=== PATIENT | female | born 1960 | race Caucasian/White ===

== ENCOUNTER → 2016-08-17 | Outpatient (CLI) | payer MEDICARE, MEDICAID ==
[~2016-08-17] MED LIST: AUGMENTIN1 TA2 PO; BUPROPION HCL75 M1 PO; CLONAZEPAM0.5 M1 PO; CYCLOBENZAPRINE10 M1 OR; DUONEB 3 MG/3 ML3 ML IH; GABAPENTIN300 M1 PO; LOVASTATIN10 MG PO; MEDROL 4MG. DOSE4 MG PO; NORCO 325 MG-101 TAB PO; NORCO 325 MG-51 TAB PO; PRILOSEC20 M1 PO; PRILOSEC40 MG PO; SPIRIVA HA1 PUFF/INH IH; SYMBICORT1 AE1 IH; TAMIFLU75 MG PO; VENTOLIN H0.09 MG/AC IH; ZOFRAN ODT4 MG PO
[2016-08-17 10:44] LABS: BUN 12 mg/dL (7-18)
[2016-08-17 10:45] LABS: GFR (ESTIMATED) 74 ML/MIN (59-)
--- NOTE | 2016-08-21 08:56 | RADIOLOGY REPORT PS360 ---
DIG MAMM-SCREEN [facility] W/CAD CAD Screening COMPARISON: Digital mammograms 03/02/2013 and 03/22/2015 INDICATION: There is a history of breast cancer in the patient's mother. TECHNIQUE: Standard CC and MLO images were obtained. R2 CAD reviewed. FINDINGS: The breasts are composed primarily of fat with scattered fibroglandular densities throughout both breasts. Glandular elements are slightly more prominent left breast than right but this was noted previously. There are few scattered benign-appearing calcifications in each breast. There is a mole marker left breast. There is no new or suspicious lesion in either breast and there are no suspicious microcalcifications. IMPRESSION: Stable exam with no suspicious lesion seen recommend yearly follow-up BI-RADS CATEGORY: 2_Benign RECOMMENDED FOLLOWUP: 12M 12 MONTH FOLLOW-UP (A letter has been sent to the patient regarding results of the study.)
== END ==
LOC: RAD 08-07 09:00 → LAB 08:53 → RAD 08:53
PROVIDERS: Internal Medicine
DX: Z12.31 Encounter for screening mammogram for malignant neoplasm of breast (principal); I73.9 Peripheral vascular disease, unspecified; E87.6 Hypokalemia
CPT/HCPCS: G0202

== ENCOUNTER 2017-01-20 21:49 | Emergency (ER) | payer MEDICARE ==
[~2017-01-20] VITALS: Ht 170.2 cm; Wt 88.9 kg
--- NOTE | 2017-01-20 22:20 | Emergency Room Report ---
History of Present Illness Time Seen by [id number] Presenting Problem in Triage Pt arrived:Walked Presenting Problem:FEVER, BODY ACHES X 5 DAYS. 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 Y Clinical Suspician of Infection? N Mental Status: 1 - Regular (Normal Baseline) Sepsis Risk:Possible Sepsis Risk Have you (or family members/close friends) recently traveled outside the [place]? N If Yes, where/when: Have you had exposure to infectious disease within the past month? TB? Other? Specify: Source patient, RN notes reviewed, family, old records Exam Limitations no limitations Comment wf who over the last 5 days has had fever with prod cough with achey with no hemoptysis or rash Cardiac Chest Pain Chest pain indicative of cardiac No Timing/Duration this evening Severity moderate ALLERGIES Coded Allergies: tetanus and diphtheria toxoids (TETANUS & DIPHTHERIA TOXOIDS) (Severe, I-HIVES 02/28/16) Home Medications Reported Medications Albuterol/Ipratropiu (Duoneb) 3 ML IH TID Tiotropium [place] (Spiriva) 1 PUFF IH DAILY ALBUTEROL (Ventolin Hfa) 2 PUFFS IH Q6HP PRN BREATHING Clonazepam (Clonazepam 0.5MG) 1 MG PO TID #60 BUDESONIDE/FORMOTEROL FUMARATE (Symbicort 160-4.5 Mcg Inhaler) 2 PUFF IH BID Omeprazole (Prilosec 40mg Cap) 40 MG PO DAILY History Medical History General CAD? No Angina: No NV: No Hypertension? Yes Hyperlipidemia? Yes CHF? No COPD? Yes Asthma? No Anemia? No Hernia? No Thyroid Problems? No Hypothyroidism? No CVA? No Seizures? No Diabetes? No End Stage Renal Disease? No UTI? No Stones? No GB Disease: No Nephritic Syndrome? No Asplenia? No Hepatitis? No Sickle Cell Disease? No Arthritis? Yes Cataracts? No Glaucoma? No MRSA? No TB? No Cancer? Yes Site: SKIN-CHEST More? No Immunization Hx DT/Tetanus Unknown Flu 2016-17FSN Pneumonia Received In Past Surgical Hx Previous Surgery?Y C SECTION TUBAL REVERSAL VEIN REMOVAL SKIN CA LESION ON CHEST DATA MIGRATION LEAD Hx LMP N/A Family History Family Hx Diabetes Yes CAD Yes Hypertension Yes Hyperlipidemia Yes Cancer Yes TB No Social History Smoking Hx Smoker: Current Every Day Smoker Tobacco: Yes Type Cigarettes Packs/day 1 1/2 - 2 Packs Alcohol Alcohol: No Drugs none Review of Systems All Other Systems Reviewed and Negative Constitutional see HPI, fever Eyes denies drainage ENT denies: ear pain, epistaxis, throat pain. Respiratory see HPI, cough, denies shortness of breath, wheezing Cardiovascular denies chest pain, denies palpitations, denies syncope Gastrointestinal denies abdominal pain, denies diarrhea, denies vomiting Genitourinary denies: dysuria, frequency, hesitancy, hematuria. Musculoskeletal denies back pain, denies joint pain, denies joint swelling, denies neck pain Skin denies rash Psychiatric/Neurological denies headache, denies seizure Physical Exam Vital Signs Vital Signs Date Time Temp Pulse Resp B/P Pulse O2 O2 Flow FiO2 Ox Delivery Rate 01/21 0034 14 01/20 2354 98.6 88 16 138/43 92 01/20 2305 100.1 86 16 134/64 94 01/20 2200 100.1 93 22 140/93 93 - WBC >12,000 or <4,000 or 10% bands? 2 or more SIRS Criteria Met? B/P:138/43 MAP:108 Creatinine >2.0? UA output<0.5ml/kg/hr for 2 hrs? Platelet count >100,000? Lactate >2.0mmol/1? INR >1.2 or PTT > than 60 sec? Evidence of Organ Dysfunction? Provider documented clinical suspician of infection? N Sepsis Criteria Count: 2 Sepsis Risk: Possible Sepsis Risk General Appearance no apparent distress Eye Exam - bilateral eye PERRL, bilateral eye EOMI Ear, Nose, Throat normal ENT inspection Neck supple Respiratory Status No: respiratory distress. Lung Sounds bilateral: rhonchi. 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 No Results/Orders Laboratory Tests 01/20/172214: Lactic Acid 0.9 01/20/172214: Sodium 139, Potassium 3.5, Chloride 101, Carbon Dioxide 29, BUN 11, Creatinine 0.8, Estimated Creat Clear 110, Estimated GFR (MDRD) 74, Glucose 131 H, Calcium 9.2, Total Bilirubin 0.3, AST 11 L, ALT 16, Alkaline Phosphatase 99, Total Protein 7.5, Albumin 3.2 L, Globulin 4.3 H, Albumin/Globulin Ratio 0.7 L, WBC 8.0, RBC 4.14 L, Hgb 13.0, Hct 39.5, MCV 95.5, RDW 13.7, Plt Count 237, MPV 7.6 , Gran % 75.7, Gran # 6.0, Lymphocytes % 18.0, Monocytes % 5.1, Eosinophils % 0.9, Basophils % 0.4, Lymphocytes # 1.4, Monocytes # 0.4, Eosinophils # 0.1, Basophils # 0.0, PUBS MCHC 32.9, MCH 31.4 H, Influenza Type A Ag NOT DETECTED, Influenza Type B Ag NOT DETECTED Current Medication Orders Sig/Harris Start time Last Medication Dose Route Stop Time Status Admin Sodium Chloride 1,000 ML .STK-MED ONE 01/21 002 DC IV Ketorolac 0 .STK-MED ONE 01/21 002 DC Tromethamine .ROUTE Levofloxacin/Dextrose 150 ML .STK-MED ONE 01/21 23 DC IV Methylprednisolone 0 .STK-MED ONE 01/21 002 DC Sodium Succinate .ROUTE Benzonatate 0 .STK-MED ONE 01/21 0022 DC PO Benzonatate 100 MG ONCE ONE 01/21 15 DC 01/21 PO 01/21 001 0033 Ketorolac 30 MG ONCE ONE 01/21 15 DC 01/21 Tromethamine IV 01/21 001 0034 Levofloxacin/Dextrose 150 ML ONCE ONE 01/21 15 CKDr IV 01/21 0144 Methylprednisolone 125 MG ONCE ONE 01/215 DC 01/21 Sodium Succinate IV 01/21 001 0032 Sodium Chloride 1,000 ML .Q1H1M 01/21 15 AC 01/21 IV 01/21 0115 0032 Sodium Chloride 10 ML PRN PRN 01/21 0015 AC IV 01/22 0011 Sodium Chloride 10 ML PRN PRN 01/20 2215 AC IV 01/21 221 Orders Procedure Date/time Status CHEST(2 VIEWS-NOT PORTABLE) 01/21 2212 Active IV SALINE LOCK 01/21 2212 Active CULTURE, BLOOD 01/21 2212 Active LACTIC ACID 01/21 2212 Complete INFLUENZA A&B ANTIGENS 01/21 2212 Complete CBC WITH AUTO DIFF 01/21 2212 Complete CHEM 12 PROFILE 01/21 2212 Complete XRAY/CT/US XRAY/CT/US XRAY chest XR interpretation by reviewed by me Xray Results normal/NAD Departure Departure Time of Disposition 32 Disposition DC Home or Self Care(routine) Clinical Impression Primary Impression: Bronchitis Condition STABLE Referrals Ish CARREON,Gabo Rojo (Family) Patient Instructions DI for Cough -- Adult Additional Instructions fluids and use meds and see pcp for follow up Discharge Counseling Counseled pt/family regarding diagnosis, test results, medications/RX, follow up needs, tobacco counseling,> 3min Prescriptions Current Visit Scripts Levofloxacin (Levaquin 500MG) 500 MG PO DAILY #7 TAB BENZONATATE (Benzonatate) 100 MG PO TID #21 CAP Prednisone (Prednisone 20MG) 20 MG PO BID #10 TAB ED Critical Care [place] No at 0037
--- OUTSIDE RECORDS SUMMARY | 2017-01-20 22:34 | External Medical Summary Rpt ---
Author Author , QUAN Organization QUAN Address Unknown Phone [email or web address] Care Team Providers Care Airborne Operations Manager Name Role Phone [facility], [facility] Unavailable Unavailable [employer] Unavailable Unavailable INC, [employer] MARTA NORMAN MD, PSC, Unavailable Unavailable MARTA NORMAN MD, PSC VALENCIA FRIEDMAN Unavailable Unavailable WEN BENSADOUN KHADAR, Unavailable Unavailable BENSADOUN KHADAR [facility] Unavailable Unavailable DEPARTMENT, [facility] DEPARTMENT [facility] Unavailable Unavailable DEPARTMENT, [facility] DEPARTMENT BUX ANJ, BUX ANJ Unavailable Unavailable [facility] Unavailable Unavailable [facility], [facility] PEDRO PAT, PEDRO PAT Unavailable Unavailable URI TAHIRA, Unavailable Unavailable URI TAHIRA SIMMS JOSE CARLOS, SIMMS JOSE CARLOS Unavailable Unavailable FAUGHN GOODRICH, FAUGHN Unavailable Unavailable GOODRICH [facility] Unavailable Unavailable INC, [facility] Unavailable Unavailable HOSPITAL P, [facility] P [facility], Unavailable Unavailable [facility] WARD LOVE, WARD LOVE Unavailable Unavailable SABA FISTER JOE, Unavailable Unavailable SABA FISTER JOE [facility] Unavailable Unavailable IM[facility]ING [facility], [facility] Un[facility], [facility] NATHAN CRI, NATHAN CRI Unavailable Unavailable DWAYNE JR DWI, DWAYNE Unavailable Unavailable JR DWI [facility], [facility] Unavailable Unavailable INC [facility], [facility] Unavailable Unavailable INC NAMRATA MACKEY MD Unavailable Unavailable ESTER ZAVALA, CHAD Unavailable Unavailable SALLY MCGRAW, Unavailable Unavailable HORACE TOBIAS ALPA, Unavailable Unavailable JATINDER YUEN [facility] Unavailable Unavailable [facility], Unavailable Unavailable PLL[facility], [facility] SHAKEEL TOD, SHAKEEL TOD Unavailable Unavailable CLARISSA PHI, CLARISSA PHI Unavailable [facility]available [facility], Unavailable [facility]available [facility], Unavailable Unavailable [facility] Purpose Continuity of Care Document - 09-13-2013 through 2016 Problems Code Diagnosis DOS Provider Status 86137 BASAL CELL 04-05-2015 [facility] SKIN LOWER LIMB INCL HIP 2298 BENIGN 04-05-2015 [facility] NEOPLASM OF PHYSICIANS OTHER GROUP SPECIFIED SITES 85269 OTHER ACUTE 04-05-2015 [facility] PAIN PHYSICIANS GROUP 7020 ACTINIC 04-05-2015 [facility] KERATOSIS PHYSICIANS GROUP 89100 OTHER 04-05-2015 [facility] SEBORRHEIC PHYSICIANS KERATOSIS GROUP 7099 UNSPECIFIED 04-05-2015 [facility] ANESTH OF OF THE BLUE SKIN&SUBCUT ANEOUS TISSUE V7284 UNSPECIFIED 04-01-2015 [facility] PRE-OPERATI INC VE EXAMINATION 5180 PULMONARY 03-22-2015 [facility] 7862 COUGH 03-22-2015 [facility] V7611 SCREENING 03-22-2015 [facility] MAMMOGRAM [facility] FOR [facility] ASS HIGH-RISK PATIENT V7612 OTHER 03-22-2015 [facility] P 496 CHRONIC 03-20-2015 [facility] AIRWAY OBSTRUCTION NEC 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, LUMBAR/LUMB , PSC OSACRAL INTERVERTEB RAL DISC 86898 ASTHMA, 03-08-2015 [facility] , UNSPECIFIED STATUS 60743 BASAL CELL 02-22-2015 [facility] PHYSICIANS SKIN TRUNK GROUP EXCEPT SCROTUM 81704 SQUAMOUS 02-22-2015 [facility], CELL LLC [facility] SKIN TRUNK EXCPT SCROTUM 73512 BASAL CELL 02-22-2015 [facility] SKIN UPPER LIMB INCL SHOULD 2382 NEOPLASM OF 02-02-2015 [facility] UNCERTAIN PHYSICIANS BEHAVIOR OF GROUP SKIN 7244 THORACIC/MARIANGEL 12-31-2014 NAMRATA OBRIEN MD NEURITIS/RA DICULITIS UNSPEC 70772 SHORTNESS 12-26-2014 [facility] OF [facility] 98371 CHEST PAIN 12-26-2014 [facility]NSPECIFIED [facility] 09482 PAINFUL 12-26-2014 [facility], [facility] 7245 UNSPECIFIED 11-22-2014 [facility]HE [facility] 7242 LUMBAGO 10-06-2014 [facility] INC V571 OTHER 10-06-2014 [facility] THERAPY INC 6989 UNSPECIFIED 09-29-2014 [facility] 7820 DISTURBANCE 09-29-2014 [facility] OF SKIN SERV SENSATION [facility]OUND[facility] 0300 OTHER AND 08-03-2014 [facility] UNSPECIFIED [facility] INC HYPERLIPIDE JODIE 41672 UNSPECIFIED 07-13-2014 [facility] VIRAL [facility] INFECTION [facility] P IN CCE & UNS SITE 4928 OTHER 07-13-2014 [facility] EMPHYSEMA [facility] 86240 OTHER 07-13-2014 [place] DISEASES OF MEDICAL LUNG NOT IMAGING ASS ELSEWHERE CLASSIFIED 14174 FEVER 07-13-2014 [place] UNSPECIFIED [facility] V148 PERSONAL 07-13-2014 [facility] HISTORY [facility] ALLERGY [facility] P SPEC MEDICINAL AGTS V1582 PERS HX 03-17-2014 [facility] TOBACCO USE HEALTH PRESENTING DEPARTMENT HAZARDS HEALTH V700 ROUTINE 03-17-2014 [facility] GENERAL HEALTH MEDICAL DEPARTMENT EXAM@HEALTH CARE FACL V8530 BODY MASS 03-17-2014 [facility] INDEX HEALTH 30.0-30.9 DEPARTMENT ADULT 58472 ABDOMINAL 12-29-2013 [facility], LEFT [facility] UPPER INC QUADRANT 82854 ABDOMINAL 12-29-2013 [place] PAIN OTHER MEDICAL SPECIFIED IMAGING ASS SITE 45370 DISPLCMT 10-09-2013 [place] LUMBAR MEDICAL INTERVERT IMAGING ASS DISC W/O MYELOPATHY B34.9 VIRAL INFECTION, UNSPECIFIED E78.5 HYPERLIPIDE JODIE, UNSPECIFIED I70.213 ATHSCL [place] ARTERIES OF EXTRM W INTRMT LIBBY, BI LEGS K57.90 DVRTCLOS OF INTEST, PART UNSP, 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 W/O BLEED M54.5 LOW BACK PAIN R06.02 SHORTNESS OF BREATH R07.81 PLEURODYNIA R10.13 EPIGASTRIC PAIN Z79.891 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 OF OPIATE ANALGESIC Procedures Procedure DOS Code Location Performer Comment EXCISION 88911 [facility] SHAKEEL TOD MAL 5 PHYSICIAN LESION S GROUP TRUNK/ARM /LEG 2.1-3.0 CM INJECTION J0131 [facility] ACETAMINO INC INC PHEN 10 MG EXC B9 69189 [facility] SHAKEEL TOD LESION 5 PHYSICIAN MRGN XCP S GROUP SK TG T/A/L 0.6-1[place]0 [place] [address] [facility], [facility] PAT SURG 5 [facility] PATHOLOGY GROSS&BONNIE ROSCOPIC EXAM INJECTION J2405 [facility] ONDANSETR INC INC ON HCL PER 1 MG PRESSURIZ 83149 [facility] ED/NONPRE 5 [facility] SSURIZED [place] [address] [facility] INFUSION 5 [facility] THERAPY/P INC INC ROPHYLAXI S /DX 1ST TO 1 HR THERAPEUT 42863 [facility] IC 5 [facility] INJECTION INC INC IV PUSH EACH NEW DRUG EXC B9 78436 [facility] SHAKEEL TOD LESION 5 PHYSICIAN MRGN XCP S GROUP SK TG T/A/L >4.0 CM UNCLASSIF J3490 [facility] IED DRUGS 5 [facility] INC INC ANES 75716 [facility] SIMMS JOSE CARLOS INTEG 5 ANESTH EXTREMITI OF THE ES ANT BLUE TRUNK & [place] [address] [facility] INFUSION 5 [facility] THERAPY INC INC PROPHYLAX IS/DX EA HOUR BASIC 08886 [facility] METABOLIC 5 [facility] PANEL INC INC CALCIUM TOTAL COLLECTIO 08266 [facility] N VENOUS 5 [facility] BLOOD INC INC VENIPUNCT URE BLOOD 16893 [facility] COUNT 5 [facility] COMPLETE INC INC AUTO&AUTO DIFRNTL WBC ECG 61368 [facility] ROUTINE 5 [facility] ECG INC INC W/LEAST 12 LDS TRCG ONLY W/O I&R COMPUTER- 96734 [place] URI AIDED 5 MEDICAL [place] DETECTION IMAGING ASS SCREENING MAMMOGRAP HY RADIOLOGI 20497 [facility] C EXAM 5 MEDICAL WEN CHEST 2 IMAGING VIEWS ASS FRONTAL&L ATERAL ECG 64608 [facility] RICE JR ROUTINE 5 [facility] W/LEAST P 12 LDS I&R ONLY SCREENING G0202 [place] [address] [facility]ICAL [place] MAMMOGRAP IMAGING HY INNA ASS INCL CAD WHEN PERFORMD O2 CONC 1 E1390 [facility] 5 INC INC 85%/>02 [place] [address] MARTA NATHAN CRI DX/THER 5 MD ESTER, SBST PSC EPIDURAL/ SUBARACH LUMBAR/SA CRAL FLUOR 32352 MARTA NATHAN CRI NEEDLE/CA 5 MD ESTER, TH PSC SPINE/PAR ASPINAL DX/THER ADDON SPMTRY 16773 [place] JATINDER W/VC 5 MEDICAL ALPA EXPIRATOR SERV Y BRUCE FOUNDATIO W/[place] [address] [facility], HORACE SURG 5 [facility] PATHOLOGY GROSS&BONNIE ROSCOPIC EXAM EXCISION 29102 [facility] MAL 5 [facility] LESION INC INC TRUNK/ARM /LEG 0.6-1.0 CM EXCISION 74142 [facility] MAL 5 [facility] LESION INC INC TRUNK/ARM /LEG 2.1-3.0 CM EXCISION 35469 [facility] MAL 5 [facility] LESION INC INC TRUNK/ARM /LEG 1.1-2.0 CM EXC B9 79580 [facility] LESION 5 [facility] MRGN XCP INC INC SK TG T/A/L 1.1-2.0 CM O2 CONC 1 E1390 [facility] 5 INC INC 85%/>02 CONC AT PRS FLW RATE O2 CONC 1 E1390 [facility] 5 INC INC 85%/>02 CONC AT PRS FLW RATE RADIOLOGI 77256 [place] [address] MEDICAL WEN EXAMINATI IMAGING ON CHEST ASS SINGLE VIEW FRONTAL O2 CONC 1 E1390 [facility] 5 INC INC 85%/>02 CONC AT PRS FLW RATE INJECTION J1030 [facility] METHYLPRE INC INC DNISOLONE ACETATE 40 MG NJX 10998 NAMRATA KAURX BUX ANJ DX/THER 5 SBST EPIDURAL/ SUBARACH LUMBAR/SA CRAL INJECTION J1040 [facility] METHYLPRE INC INC DNISOLONE ACETATE 80 MG FLUOR 95631 MADAR BUX BUX ANJ NEEDLE/CA 5 MD TH SPINE/PAR ASPINAL DX/THER ADDON LOC Q9967 [facility] 300-399 5 [facility] MG/ML INC INC IODINE CONCENTRA TION PER ML RADEX 53548 [facility] SPINE 5 [facility] THORACIC INC INC 2 VIEWS RADEX 72405 [facility] SPINE 5 MEDICAL WEN THORACIC IMAGING 3 VIEWS ASS RADIOLOGI 50396 [facility] C EXAM 5 MEDICAL WEN CHEST 2 IMAGING VIEWS ASS FRONTAL&L ATERAL O2 CONC 1 E1390 [facility] 5 INC INC 85%/>02 CONC AT PRS FLW RATE O2 CONC 1 E1390 [facility] 5 INC INC 85%/>02 CONC AT PRS FLW RATE APPLICATI 94310 [facility] ON 5 [facility] MODALITY INC INC 1/> AREAS HOT/COLD PACKS THERAPEUT 39943 [facility] IC PX 1/> 5 [facility] AREAS INC INC EACH 15 MIN EXERCISES APPL 49139 [facility] MODALITY 5 [facility] 1/> AREAS INC INC ELEC STIMJ UNATTENDE D LOCM Q9966 [facility] 200-299 5 [facility] MG/ML INC INC IODINE CONCENTRA TION PER ML FLUOR 03010 M[facility] BUX BUX ANJ NEEDLE/CA 5 MD TH SPINE/PAR ASPINAL DX/THER [place] NJX 92205 [facility] BUX BUX ANJ DX/THER 5 MD SBST EPIDURAL/ SUBARACH LUMBAR/SA CRAL UNCLASSIF J3490 [facility] IED DRUGS 5 [facility] INC INC THERAPEUT 71950 [facility] IC PX 1/> 5 [facility] AREAS INC INC EACH 15 MIN EXERCISES APPL 80137 [facility] MODALITY 5 [facility] 1/> AREAS INC INC ELEC STIMJ UNATTENDE D APPLICATI 36670 [facility] ON 5 [facility] MODALITY INC INC 1/> AREAS HOT/COLD PACKS RADIOLOGI 32991 [place] SYLVIA LOVE C EXAM 5 MEDICAL CHEST 2 SERV VIEWS FOUNDATIO FRONTAL&L N ATERAL APPLICATI 15833 [facility] ON 5 [facility] MODALITY INC INC 1/> AREAS HOT/COLD PACKS APPL 83687 [facility] MODALITY 5 [facility] 1/> AREAS INC INC ELEC STIMJ UNATTENDE D THERAPEUT 50485 [facility] IC PX 1/> 5 [facility] AREAS INC INC EACH 15 MIN EXERCISES LUMB L0627 [facility] 5 TECHNOLOG TECHNOLOG SAGIT IES INC IES INC CNTRL RIGID A&P PANEL PREFAB THERAPEUT 41464 [facility] IC PX 1/> 5 [facility] AREAS INC INC EACH 15 MIN EXERCISES APPL 70097 [facility] MODALITY 5 [facility] 1/> AREAS INC INC ELEC STIMJ UNATTENDE D APPLICATI 85801 [facility] ON 5 [facility] MODALITY INC INC 1/> AREAS HOT/COLD PACKS O2 CONC 1 E1390 [facility] 5 INC INC 85%/>02 CONC AT PRSC FLW RATE SPMTRY 25460 [place] TU[place]YACH[place] W/VC 5 MEDICAL PHILLIPS EXPIRATOR SERV MAR Y BRUCE FOUNDATIO W/WO MXML N VOL VNTJ PHYSICAL 76111 [facility] THERAPY 5 [facility] EVALUATIO INC INC N O2 CONC 1 E1390 [place] [address] INC INC 85%/>02 [place] [address] [facility] THYROXINE 5 [facility] TOTAL INC INC GONADOTRO 58147 [facility] PIN 5 [facility] FOLLICLE INC INC STIMULATI NG HORMONE CYANOCOBA 04139 [facility] JUVENTINO 5 [facility] VITAMIN INC INC B-12 GONADOTRO 41226 [facility] PIN 5 [facility] LUTEINIZI INC INC NG HORMONE BLOOD 45178 [facility] COUNT 5 [facility] COMPLETE INC INC AUTO&AUTO DIFRNTL WBC COMPREHEN 49125 [facility] SIVE 5 [facility] METABOLIC INC INC PANEL HEMOGLOBI 13866 [facility] N 5 [facility] GLYCOSYLA [place] [address] [facility] THYROID 5 [facility] STIMULATI INC INC NG HORMONE TSH O2 CONC 1 E1390 [facility] 5 INC INC 85%/>02 CONC AT PRSC FLW RATE RADIOLOGI 05856 [place] [facility] C EXAM 5 MEDICAL [place] CHEST 2 IMAGING VIEWS ASS FRONTAL&L ATERAL IAADI 12239 [facility] INFLUENZA 5 [facility] B VIRUS INC INC IAADI 01067 [facility] INFFLUENZ 5 [facility] A A VIRUS INC INC UNCLASSIF J3490 [facility] IED DRUGS 5 [facility] INC INC O2 CONC 1 E1390 [facility] 4 INC INC 85%/>02 CONC AT PRSC FLW RATE O2 CONC 1 E1390 [facility] 4 INC INC 85%/>02 CONC AT PRSC FLW RATE O2 CONC 1 E1390 [facility] 4 INC INC 85%/>02 CONC AT PRSC FLW RATE O2 CONC 1 E1390 [facility] 4 INC INC 85%/>02 CONC AT PRSC FLW RATE O2 CONC 1 E1390 [facility] 4 INC INC 85%/>02 CONC AT PRSC FLW RATE 3D 90636 [facility] RENDERING 4 [facility] INC INC W/INTERP& POSTPROC DIFF WORK STATION CT THORAX 19719 [facility] W/CONTRAS INC INC T MATERIAL CREATININ 72912 [facility] E BLOOD 4 [place] [address] [facility] UREA 4 [facility] NITROGEN INC INC QUANTITAT KANE O2 CONC 1 E1390 [facility] 4 INC INC 85%/>02 CONC AT PRSC FLW RATE RADEX ABD 25231 [facility] GREWAL COMPL 4 MEDICAL [place] AQT ABD IMAGING W/S/E/D ASS VIEWS 1 VIEW CH COMPREHEN 95537 [facility] SIVE 4 [facility] [address] [facility] AMYLASE 4 [facility] INC INC BLOOD 80298 [facility] COUNT 4 [facility] COMPLETE INC INC AUTO&[place] [address] [facility] LIPASE 4 [facility] INC INC O2 CONC 1 E1390 [facility] 4 INC INC 85%/>02 CONC AT PRSC FLW RATE O2 CONC 1 E1390 [facility] 4 INC INC 85%/>02 CONC AT PRSC FLW RATE SPMTRY 60137 [place] BENSADOUN W/VC 4 MEDICAL KHADAR EXPIRATOR SERV Y BRUCE FOUNDATIO W/WO MXML VOL VNTJ O2 CONC 1 E1390 [facility] 4 85%/>02 CONC AT PRSC FLW RATE 3D 85230 [place] URI RENDERING 4 [facility]ICAL [place] IMAGING W/INTERP& ASS POSTPROC DIFF WORK STATION MRI 73107 [place] URI SPINAL 4 [facility] [place] CANAL IMAGING LUMBAR ASS W/O CONTRAST MATERIAL COMPREHEN 65014 [facility] SIVE 4 [facility] METABOLIC INC INC PANEL BLOOD 81440 [facility] COUNT 4 [facility] COMPLETE INC INC AUTO&AUTO DIFRNTL WBC LIPID 37428 [facility] PANEL 4 [facility] INC INC HEMOGLOBI 47113 [facility] N 4 [facility] GLYCOSYLA [place] [address] [facility] THYROID 4 [facility] STIMULATI [place] [address] [facility] THYROXINE 4 [facility] INC O2 CONC 1 E1390 [facility] 4 85%/>02 CONC AT [facility] FLW RATE Encounters Encounter Start End Date Code Location Performer Type Date [facility] - 5 5 [facility] - 5 5 [facility] - 5 5 [facility] - 5 5 Y [facility] - 5 5 [facility] OFFICE 22667 [facility] SHAKEEL CAGLE CONSULTAT 5 5 PHYSICIAN ION S GROUP NEW/ESTAB PATIENT 30 MIN OFFICE 60053 NAMRATA KAURX BUX AN OUTPATIEN 5 5 MD T VISIT 10 MINUTES HOSPITAL [facility] - 5 5 [facility] EMERGENCY 32296 [facility] ELLER DEPT 5 5 PHYSICIAN KP VISIT S, [facility] HIGH SEVERITY& THREAT [facility] - 5 5 [facility] - 5 5 [facility] - 5 5 [facility] OFFICE 99034 MADAR BUX BUX ANJ OUTPATIEN 5 5 MD T VISIT 10 MINUTES HOSPITAL [facility] - 5 5 [facility] - 5 5 [facility] OFFICE 50848 ANT WALTER CONSULTAT 5 5 MEDICAL FISTER ION SERV JOE NEW/ESTAB FOUNDATIO PATIENT N 40 MIN OFFICE 01874 [facility] 5 5 Y T VISIT 5 H[facility]PITAL [facility] - 5 5 [facility] OUTPATI[facility] INC T OFFICE 88192 NAMRATA NORMAN ANJ OUTPATIJULIO 5 5 MD T NEW 20 MINUTES [facility] - 5 5 [facility] OUTPATIEN INC T EMERGENCY 49311 [facility] BONILLA 5 5 [facility] T VISIT P LOW/MODER SEVERITY [facility] - 5 5 [facility] OUTPATIEN INC T PERIODIC 35287 MORELIA THIBODEAUX PREVENTIV 4 4 [facility] E MED EST PATIENT [facility] 40-64YRS T [facility] - 4 4 [facility] OUTPATIEN [facility] Vanegas 4 4 [facility] OUTPATIEN INC T OFFICE 26326 [place] CLARISSA PHI OUTPATIEN 4 4 MEDICAL T NEW 30 SERV MINUTES [facility] - 4 4 [facility] OUTPATIEN INC T
--- OUTSIDE RECORDS SUMMARY | 2017-01-20 22:34 | External Medical Summary Rpt ---
Author Author , QUAN Organization QUAN Address Unknown Phone [email or web address] Medical Care Team Providers Care Garnishment Specialist Name Role Phone [facility], [facility] Unavailable Unavailable [employer] Unavailable Unavailable INC, [employer] MARTA NORMAN MD, PSC, Unavailable Unavailable MARTA NORMAN MD, PSC VALENCIA FRIEDMAN Unavailable Unavailable WEN BENSADOUN KHADAR, Unavailable Unavailable BENSADOUN KHADAR [facility] Unavailable Unavailable DEPARTMENT, [facility] DEPARTMENT [facility] Unavailable Unavailable DEPARTMENT, [facility] DEPARTMENT BUX ANJ, BUX ANJ Unavailable Unavailable [facility] Unavailable Unavailable [facility], [facility] PEDRO PAT, PEDRO PAT Unavailable Unavailable URI TAHIRA, Unavailable Unavailable URI TAHIRA SIMMS JOSE CARLOS, SIMMS JOSE CARLOS Unavailable Unavailable FAUGHN GOODRICH, FAUGHN Unavailable Unavailable GOODRICH [facility] Unavailable Unavailable INC, [facility] Unavailable Unavailable [facility]PITAL [facility], Unavailable Unavailable [facility] WARD LOVE, WARD LOVE Unavailable Unavailable SABA FISTER JOE, Unavailable Unavailable SABA FISTER JOE [facility] Unavailable Unavailable IMAGING [facility], [facility] Un[facility], [facility] NATHAN CRI, NATHAN CRI [...] Unavailable CLARISSA PHI, CLARISSA PHI Unavailable [facility]available [facility], Unavailable Unavailable [facility], Unavailable Unavailable [facility] Purpose Continuity of Care Document - 09-13-2013 through 2016 Problems Code Diagnosis DOS Provider Status 15034 BASAL CELL 04-05-2015 [facility] SKIN LOWER LIMB INCL HIP 2298 BENIGN 04-05-2015 [facility] NEOPLASM OF PHYSICIANS OTHER GROUP SPECIFIED SITES 87799 OTHER ACUTE 04-05-2015 [facility] PAIN PHYSICIANS GROUP 7020 ACTINIC 04-05-2015 [facility] KERATOSIS PHYSICIANS GROUP 83919 OTHER 04-05-2015 [facility] SEBORRHEIC PHYSICIANS KERATOSIS GROUP 7099 UNSPECIFIED 04-05-2015 [facility] ANESTH OF OF THE BLUE SKIN&SUBCUT ANEOUS TISSUE V7284 UNSPECIFIED 04-01-2015 [facility] PRE-OPERATI INC VE EXAMINATION 5180 PULMONARY 03-22-2015 [place] [facility] 7862 COUGH 03-22-2015 [facility] V7611 SCREENING 03-22-2015 [place] MAMMOGRAM [facility]ICAL FOR IMAGING ASS HIGH-RISK PATIENT V7612 OTHER 03-22-2015 [facility] 496 CHRONIC 03-20-2015 [facility] AIRWAY OBSTRUCTION NEC 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, LUMBAR/LUMB , PSC OSACRAL INTERVERTEB RAL DISC 21190 ASTHMA, 03-08-2015 [facility] , UNSPECIFIED STATUS 66179 BASAL CELL 02-22-2015 [facility]OMA PHYSICIANS SKIN TRUNK GROUP EXCEPT SCROTUM 03982 SQUAMOUS 02-22-2015 [facility] CAR[facility]INOMA SKIN TRUNK EXCPT SCROTUM 86226 BASAL CELL 02-22-2015 [facility] SKIN UPPER LIMB INCL SHOULD 2382 NEOPLASM OF 02-02-2015 [facility] UNCERTAIN PHYSICIANS BEHAVIOR OF GROUP SKIN 7244 THORACIC/MARIANGEL 12-31-2014 NAMRATA OBRIEN MD NEURITIS/RA DICULITIS UNSPEC 94146 SHORTNESS 12-26-2014 [place] OF [facility] 21797 CHEST PAIN 12-26-2014 [place] UNSPECIFIED [facility]ICAL [facility]ING [facility] 89964 PAINFUL 12-26-2014 [facility], [facility] 7245 UNSPECIFIED 11-22-2014 [place] [facility]ACHE [facility] 7242 LUMBAGO 10-06-2014 [facility] V571 OTHER 10-06-2014 [facility] THERAPY INC 6989 UNSPECIFIED 09-29-2014 [facility] 7820 DISTURBANCE 09-29-2014 [facility] OF SKIN SERV SENSATION [facility]OUNDATION 8902 OTHER AND 08-03-2014 [facility]NSPEC[facility]IED [facility] INC HYPERLIPIDE JODIE 93306 UNSPECIFIED 07-13-2014 [facility] VIRAL [facility] INFECTION [facility] P IN CCE & UNS SITE 4928 OTHER 07-13-2014 [place] EMPHYSEMA [facility]ICAL [facility] 05927 OTHER 07-13-2014 [place] DISEASES OF MEDICAL LUNG NOT IMAGING ASS ELSEWHERE CLASSIFIED 95417 FEVER 07-13-2014 [place] UNSPECIFIED [facility]ICAL [facility]ING [facility] V148 PERSONAL 07-13-2014 [facility] HISTORY [facility] ALLERGY [facility] P SPEC MEDICINAL AGTS V1582 PERS HX 03-17-2014 [facility] TOBACCO USE HEALTH PRESENTING DEPARTMENT HAZARDS HEALTH V700 ROUTINE 03-17-2014 [facility] GENERAL HEALTH MEDICAL DEPARTMENT [email or web address] [email or web address] FACL V8530 BODY MASS 03-17-2014 [facility] INDEX HEALTH 30.0-30.9 DEPARTMENT ADULT 44752 ABDOMINAL 12-29-2013 [place], LEFT [facility] UPPER INC QUADRANT 18935 ABDOMINAL 12-29-2013 [place] PAIN OTHER MEDICAL SPECIFIED IMAGING ASS SITE 65598 DISPLCMT 10-09-2013 [place] LUMBAR MEDICAL INTERVERT IMAGING ASS DISC W/O MYELOPATHY B34.9 VIRAL INFECTION, UNSPECIFIED E78.5 HYPERLIPIDE JODIE, UNSPECIFIED I70.213 ATHSCL CITIZEN [place] ARTERIES OF EXTRM W INTRMT LIBBY, BI LEGS K57.90 DVRTCLOS OF INTEST, PART UNSP, 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 W/O BLEED M54.5 LOW BACK PAIN R06.02 SHORTNESS OF BREATH R07.81 PLEURODYNIA R10.13 EPIGASTRIC PAIN 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 Procedures Procedure DOS Code Location Performer Comment EXCISION 73302 [facility] SHAKEEL TOD MAL 5 PHYSICIAN LESION S GROUP TRUNK/ARM /LEG 2.1-3.0 CM INJECTION J0131 [facility] ACETAMINO INC INC PHEN 10 MG EXC B9 89127 [facility] SHAKEEL TOD LESION 5 PHYSICIAN MRGN XCP S GROUP SK TG T/A/L 0.6-1[place] [address] [facility] PAT SURG 5 [facility] PATHOLOGY GROSS&BONNIE ROSCOPIC EXAM INJECTION J2405 [facility] ONDANSETR INC INC ON HCL PER 1 MG PRESSURIZ 51432 [facility] ED/NONPRE 5 [facility] SSURIZED [place] [address] [facility] INFUSION 5 [facility] THERAPY/P INC INC ROPHYLAXI S /DX 1ST TO 1 HR THERAPEUT 26973 [facility] IC 5 [facility] INJECTION INC INC IV PUSH EACH NEW DRUG EXC B9 71265 [facility]KE[facility] TOD LESION 5 PHYSICIAN MRGN XCP S GROUP SK TG T/A/L >4.0 CM UNCLASSIF J3490 [facility] IED DRUGS 5 [facility] INC INC ANES 33594 COMMUNITY SIMMS JOSE CARLOS INTEG 5 ANESTH EXTREMITI OF THE ES ANT BLUE TRUNK & [place] [address] [facility] INFUSION 5 [facility] THERAPY INC INC PROPHYLAX IS/DX EA HOUR BASIC 11167 [facility] METABOLIC 5 [facility] PANEL INC INC CALCIUM TOTAL COLLECTIO 78510 [facility] N VENOUS 5 [facility] BLOOD INC INC VENIPUNCT URE BLOOD 96537 [facility] COUNT 5 [facility] COMPLETE INC INC AUTO&AUTO DIFRNTL WBC ECG 97924 [facility] ROUTINE 5 REPLACED BY [facility] ECG INC INC W/LEAST 12 LDS TRCG ONLY W/O I&R COMPUTER- 04741 [place] URI AIDED 5 MEDICAL [place] DETECTION IMAGING ASS SCREENING MAMMOGRAP HY RADIOLOGI 82342 [facility] C EXAM 5 MEDICAL WEN CHEST 2 IMAGING VIEWS ASS FRONTAL&L ATERAL ECG 15581 [facility] RICE JR ROUTINE 5 [facility] W/LEAST P 12 LDS I&R ONLY SCREENING G0202 [place] [address] MEDICAL [place] MAMMOGRAP IMAGING HY INNA ASS INCL CAD WHEN PERFORMD O2 CONC 1 E1390 [facility] 5 INC INC 85%/>02 [place] [address] MARTA NATHAN CRI DX/THER 5 MD ESTER, SBST PSC EPIDURAL/ SUBARACH LUMBAR/SA CRAL FLUOR 73592 MARTA NATHAN CRI NEEDLE/CA 5 MD ESTER, TH PSC SPINE/PAR ASPINAL DX/THER ADDON SPMTRY 99620 [place] JATINDER W/VC 5 MEDICAL ALPA EXPIRATOR SERV Y BRUCE FOUNDATIO W/[place] [address] [facility] HORACE SURG 5 [facility] PATHOLOGY GROSS&BONNIE ROSCOPIC EXAM EXCISION 31437 [facility] MAL 5 [facility] LESION INC INC TRUNK/ARM /LEG 0.6-1.0 CM EXCISION 48381 [facility] MAL 5 [facility] LESION INC INC TRUNK/ARM /LEG 2.1-3.0 CM EXCISION 67970 [facility] MAL [facility] LESION INC INC TRUNK/ARM /LEG 1.1-2.0 CM EXC B9 28416 [facility] LESION 5 [facility] MRGN XCP INC INC SK TG T/A/L 1.1-2.0 CM O2 CONC 1 E1390 [facility] 5 INC INC 85%/>02 CONC AT PRS FLW RATE O2 CONC 1 E1390 [facility] 5 INC INC 85%/>02 CONC AT PRS FLW RATE RADIOLOGI [address] [place] [address] MEDICAL WEN EXAMINATI IMAGING ON CHEST ASS SINGLE VIEW FRONTAL O2 CONC 1 E1390 [facility] 5 INC INC 85%/>02 CONC AT PRS FLW RATE INJECTION J1030 [facility] METHYLPRE INC INC DNISOLONE ACETATE 40 MG NJX 40212 NAMRATA KAURX BUX ANJ DX/THER 5 SBST EPIDURAL/ SUBARACH LUMBAR/SA CRAL INJECTION J1040 [facility] METHYLPRE INC INC DNISOLONE ACETATE 80 MG FLUOR 47169 MADAR BUX BUX ANJ NEEDLE/CA 5 MD TH SPINE/PAR ASPINAL DX/THER ADDON LOC Q9967 [facility] 300-399 5 [facility] MG/ML INC INC IODINE CONCENTRA TION PER ML RADEX 33759 [facility] SPINE 5 [facility] THORACIC INC INC 2 VIEWS RADEX 04665 [facility] SPINE 5 MEDICAL WEN THORACIC IMAGING 3 VIEWS ASS RADIOLOGI 12041 [facility] C EXAM 5 MEDICAL WEN CHEST 2 IMAGING VIEWS ASS FRONTAL&L ATERAL O2 CONC [address] [facility] 5 INC INC 85%/>02 CONC AT PRS FLW RATE O2 CONC [address] [facility] 5 INC INC 85%/>02 CONC AT PRS FLW RATE APPLICATI 57658 [facility] ON 5 [facility] MODALITY INC INC 1/> AREAS HOT/COLD PACKS THERAPEUT 09807 [facility] IC PX 1/> 5 [facility] AREAS INC INC EACH 15 MIN EXERCISES APPL 44835 [facility] MODALITY 5 [facility] 1/> AREAS INC INC ELEC STIMJ UNATTENDE D LOCM Q9966 [facility] 200-299 5 [facility] MG/ML INC INC IODINE CONCENTRA TION PER ML FLUOR 54822 [facility] BUX BUX ANJ NEEDLE/CA 5 MD TH SPINE/PAR ASPINAL DX/THER ADDON NJX 93283 [facility] BUX BUX ANJ DX/THER 5 MD SBST EPIDURAL/ SUBARACH LUMBAR/SA CRAL UNCLASSIF J3490 [facility] IED DRUGS 5 [facility] INC INC THERAPEUT 04809 [facility] IC PX 1/> 5 [facility] AREAS INC INC EACH 15 MIN EXERCISES APPL 37017 [facility] MODALITY 5 [facility] 1/> AREAS INC INC ELEC STIMJ UNATTENDE D APPLICATI 53461 [facility] ON 5 [facility] MODALITY INC INC 1/> AREAS HOT/COLD PACKS RADIOLOGI 92107 [place] SYLVIA LOVE C EXAM 5 MEDICAL CHEST 2 SERV VIEWS FOUNDATIO FRONTAL&L N ATERAL APPLICATI 18098 [facility] ON 5 [facility] MODALITY INC INC 1/> AREAS HOT/COLD PACKS APPL 18030 [facility] MODALITY 5 [facility] 1/> AREAS INC INC ELEC STIMJ UNATTENDE D THERAPEUT 01817 [facility] IC PX 1/> 5 [facility] AREAS INC INC EACH 15 MIN EXERCISES LUMB L0627 [facility] 5 TECHNOLOG TECHNOLOG SAGIT IES INC IES INC CNTRL RIGID A&P PANEL PREFAB THERAPEUT 00389 [facility] IC PX 1/> 5 [facility] AREAS INC INC EACH 15 MIN EXERCISES APPL 84267 [facility] MODALITY 5 [facility] 1/> AREAS INC INC ELEC STIMJ UNATTENDE D APPLICATI 69514 [facility] ON 5 [facility] MODALITY INC INC 1/> AREAS HOT/COLD PACKS O2 CONC 1 E1390 [facility] 5 INC INC 85%/>02 CONC AT PRSC FLW RATE SPMTRY 11497 [place] TUPAYACHI W/VC 5 MEDICAL PHILLIPS EXPIRATOR SERV MAR Y BRUCE FOUNDATIO W/WO MXML N VOL VNTJ PHYSICAL 55830 [facility] THERAPY 5 [facility] EVALUATIO INC INC N O2 CONC 1 E1390 [place] [address] INC INC 85%/>02 [place] [address] [facility] THYROXINE 5 [facility] TOTAL INC INC GONADOTRO 40028 [facility] PIN 5 [facility] FOLLICLE INC INC STIMULATI NG HORMONE CYANOCOBA 50690 [facility] JUVENTINO 5 [facility] VITAMIN INC INC B-12 G[place]OTRO 90899 [facility] PIN 5 [facility] LUTEINIZI INC INC NG HORMONE BLOOD 24012 [facility] COUNT 5 [facility] COMPLETE INC INC AUTO&AUTO DIFRNTL WBC COMPREHEN 27713 [facility] SIVE 5 [facility] METABOLIC INC INC PANEL HEMOGLOBI 14859 [facility] N 5 [facility] GLYCOSY[place] [address] [facility] THYROID 5 [facility] STIMULATI INC INC NG HORMONE TSH O2 CONC 1 E1390 [facility] 5 INC INC 85%/>02 CONC AT PRSC [place]W [place]ATE RADIOLOGI 90240 [place] URI C EXAM 5 MEDICAL [place] CHEST 2 IMAGING VIEWS ASS FRONTAL&L ATERAL IAADI 33986 [facility] INFLUENZA 5 [facility] B VIRUS INC INC IAADI 16002 [facility] INFFLUENZ 5 [facility] A A VIRUS INC INC UNCLASSIF J3490 [facility] IED DRUGS 5 [facility] INC INC O2 CONC [address] [facility] 4 INC INC 85%/>02 CONC AT PRSC FLW RATE O2 CONC 1 E1390 [facility] 4 INC INC 85%/>02 CONC AT PRSC FLW RATE O2 CONC 1 E1390 [facility] 4 INC INC 85%/>02 CONC AT PRSC FLW RATE O2 CONC 1 E1390 [facility] 4 INC INC 85%/>02 CONC AT PRSC FLW RATE O2 CONC 1 E1390 [facility] 4 INC INC 85%/>02 CONC AT PRSC FLW RATE 3D 41082 [facility] RENDERING 4 [facility] INC INC W/INTERP& POSTPROC DIFF WORK STATION CT THORAX 59728 [facility] W/CONTRAS INC INC T MATERIAL CREATININ 38649 [facility] E BLOOD 4 [place] [address] [facility] UREA 4 [facility] NITROGEN INC INC QUANTITAT KANE O2 CONC [address] [facility] 4 INC INC 85%/>02 CONC AT PRSC FLW RATE RADEX ABD 83849 [facility] CITYMykel GREWAL COMPL 4 MEDICAL [place] AQT ABD IMAGING W/S/E/D ASS VIEWS 1 VIEW CH COMPREHEN 40969 [facility] SIVE 4 [facility] [place] [address] [facility] AMYLASE 4 [facility] INC INC BLOOD 57828 [facility] COUNT 4 [facility] COMPLETE INC INC AUTO&[place] [address] [facility] LIPASE 4 [facility] INC INC O2 CONC 1 E1390 [facility] 4 INC INC 85%/>02 CONC AT PRSC FLW RATE O2 CONC 1 E1390 [facility] 4 INC INC 85%/>02 CONC AT PRSC FLW RATE SPMTRY 19303 [place] BENSADOUN W/VC 4 MEDICAL KHADAR EXPIRATOR SERV Y BRUCE FOUNDATIO W/WO MXML VOL VNTJ O2 CONC 1 E1390 [facility] 4 85%/>02 CONC AT PRSC FLW RATE 3D 21184 [place] URI RENDERING 4 MEDICAL [place] IMAGING W/INTERP& ASS POSTPROC DIFF WORK STATION MRI 77097 [place] URI SPINAL 4 MEDICAL [place] CANAL IMAGING LUMBAR ASS W/O CONTRAST MATERIAL COMPREHEN 59589 [facility] SIVE 4 [facility] METABOLIC INC INC PANEL BLOOD 13952 [facility] COUNT 4 [facility] COMPLETE INC INC AUTO&AUTO DIFRNTL WBC LIPID 50452 [facility] PANEL 4 [facility] INC INC HEMOGLOBI 05060 [facility] N 4 [facility] GLYCOSY[place] [address] [facility] THYROID 4 [facility] STIMULATI [place] [address] [facility] THYROXINE 4 [facility]PLACED [facility] INC O2 CONC 1 E1390 [facility] 4 85%/>02 CONC AT [facility] FLW RATE Encounters Encounter Start End Date Code Location Performer Type Date [facility] - 5 5 [facility] - 5 5 [facility] - 5 5 [facility] UNIVERSIT - 5 5 Y [facility] - 5 5 [facility] OFFICE 05553 [facility] CAGLE CONSULTAT 5 5 PHYSICIAN ION S GROUP NEW/ESTAB PATIENT 30 MIN OFFICE 67255 NAMRATA KAURX BUX AN OUTPATIEN 5 5 MD T VISIT 10 MINUTES HOSPITAL [facility] - 5 5 [facility] EMERGENCY 79590 [facility] ELLER DEPT 5 5 PHYSICIAN KP VISIT S, [facility] HIGH SEVERITY& THREAT [facility] - 5 5 [facility] - 5 5 [facility] - 5 5 [facility] OFFICE 75878 MADAR BUX BUX ANJ OUTPATIEN 5 5 MD T VISIT 10 MINUTES HOSPITAL [facility] - 5 5 [facility] - 5 5 [facility] OFFICE 81123 ANT WALTER CONSULTAT 5 5 MEDICAL FISTER ION SERV JOE NEW/ESTAB FOUNDATIO PATIENT N 40 MIN OFFICE 81339 [facility] 5 5 Y T VISIT [address] [facility] - 5 [facility] - 5 5 [facility] OUTPATIEN INC T OFFICE 33174 NAMRATA NORMAN ANJ OUTPATIJULIO 5 5 MD T NEW 20 MINUTES [facility] - 5 5 [facility] OUTPATIEN INC T EMERGENCY 28333 [facility] BONILLA [address] [facility] [place] T VISIT P LOW/MODER SEVERITY [facility]OSPITAL [facility] - 5 5 [facility] OUTPATIEN INC T PERIODIC 28565 MORELIA THIBODEAUX PREVENTIV 4 4 [facility] E MED EST PATIENT [facility] 40-64YRS [facility] - 4 4 [facility]IEN [facility] Vanegas 4 4 [facility] OUTPATIEN INC T OFFICE 56671 [place] CLARISSA PHI OUTPATIEN 4 4 MEDICAL T NEW 30 SERV MINUTES [facility] - 4 4 [facility] OUTPATIEN INC T
--- OUTSIDE RECORDS SUMMARY | 2017-01-20 22:35 | External Medical Summary Rpt ---
Author Author , QUAN Organization QUAN Address Unknown Phone [email or web address] Team Providers Care Senior Application Programmer Name Role Phone [facility], [facility] Unavailable Unavailable [employer] Unavailable Unavailable INC, [employer] MARTA NORMAN MD, PSC, Unavailable Unavailable MARTA NORMAN MD, PSC BEINEKE WEN, VALENCIA Unavailable Unavailable WEN BENSADOUN KHADAR, Unavailable Unavailable BENSADOUN KHADAR [facility] Unavailable Unavailable DEPARTMENT, [facility] DEPARTMENT [facility] Unavailable Unavailable DEPARTMENT, [facility] DEPARTMENT BUX ANJ, BUX ANJ Unavailable Unavailable [facility] Unavailable Unavailable THE [facility], [facility] PEDRO PAT, PEDRO PAT Unavailable Unavailable URI TAHIRA, Unavailable Unavailable URI TAHIRA SIMMS JOSE CARLOS, SIMMS JOSE CARLOS Unavailable Unavailable FAUGHN GOODRICH, FAUGHN Unavailable Unavailable GOODRICH [facility] Unavailable Unavailable INC, [facility] Unavailable Unavailable HOSPITAL P, [facility] P [facility], Unavailable Unavailable [facility] WARD LOVE, WARD LOVE Unavailable Unavailable SABA FISTER JOE, Unavailable Unavailable SABA FISTER JOE [facility] Unavailable Unavailable IM[facility]ING [facility], [facility] Un[facility], [facility] NATHAN CRI, NATHAN CRI Unavailable Unavailable DWAYNE JR DWI, DWAYNE Unavailable Unavailable JR DWI [facility], [facility] Unavailable Unavailable INC [facility], [facility] Unavailable Unavailable INC NAMRATA NORMAN MD, NAMRATA Unavailable Unavailable ESTER MCGRAW, Unavailable Unavailable HORACE MCGRAW [facility] Un[facility] Un[facility] Unavailable [facility], [facility] SHAKEEL TOD, SHAKEEL TOD Unavailable Unavailable CLARISSA PHI, CLARISSA PHI Unavailable Unavailable [facility], Unavailable Unavailable [facility], Unavailable Unavailable [facility] Purpose Continuity of Care Document - 09-13-2013 through 2016 Problems Code Diagnosis DOS Provider Status 71430 BASAL CELL 04-05-2015 [facility] SKIN LOWER LIMB INCL HIP 2298 BENIGN 04-05-2015 [facility] NEOPLASM OF PHYSICIANS OTHER GROUP SPECIFIED SITES 92286 OTHER ACUTE 04-05-2015 [facility] PAIN PHYSICIANS GROUP 7020 ACTINIC 04-05-2015 [facility] KERATOSIS PHYSICIANS GROUP 16867 OTHER 04-05-2015 [facility] SEBORRHEIC PHYSICIANS KERATOSIS GROUP 7099 UNSPECIFIED 04-05-2015 [facility] OF THE BLUE SKIN&SUBCUT ANEOUS TISSUE V7284 UNSPECIFIED 04-01-2015 [facility] PRE-OPERATI INC VE EXAMINATION 5180 PULMONARY 03-22-2015 [facility] 7862 COUGH 03-22-2015 [facility] V7611 SCREENING 03-22-2015 [facility] M[facility]MOGRAM [facility] FOR [facility] HIGH-RISK PATIENT V7612 OTHER 03-22-2015 [facility] P 496 CHRONIC 03-20-2015 [facility] AIRWAY OBSTRUCTION NEC 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, LUMBAR/LUMB , PSC OSACRAL INTERVERTEB RAL DISC 93047 ASTHMA, 03-08-2015 [facility] , UNSPECIFIED STATUS 69699 BASAL CELL 02-22-2015 [facility] CAR[facility] PHYSICIANS SKIN TRUNK GROUP EXCEPT SCROTUM 50578 SQUAMOUS 02-22-2015 [facility], CELL LLC [facility]INOMA SKIN TRUNK EXCPT SCROTUM 02017 BASAL CELL 02-22-2015 [facility] SKIN UPPER LIMB INCL SHOULD 2382 NEOPLASM OF 02-02-2015 [facility] UNCERTAIN PHYSICIANS BEHAVIOR OF GROUP SKIN 7244 THORACIC/MARIANGEL 12-31-2014 NAMRATA OBRIEN MD NEURITIS/RA DICULITIS UNSPEC 07369 SHORTNESS 12-26-2014 [facility] 79952 CHEST PAIN 12-26-2014 [facility]NSPECIFIED [facility] 59395 PAINFUL 12-26-2014 [facility] 7245 UNSPECIFIED 11-22-2014 [facility] 7242 LUMBAGO 10-06-2014 [facility] INC V571 OTHER 10-06-2014 [facility] THERAPY INC 6989 UNSPECIFIED 09-29-2014 [facility] 7820 DISTURBANCE 09-29-2014 [facility] SKIN SERV SENSATION [facility] 3187 OTHER AND 08-03-2014 [facility] UNSPECIFIED [facility] INC HYPERLIPIDE JODIE 31468 UNSPECIFIED 07-13-2014 [facility] VIRAL [facility] INFECTION [facility] P IN CCE & UNS SITE 4928 OTHER 07-13-2014 [facility]MPHYSEMA [facility] 34685 OTHER 07-13-2014 [facility] DISEASES OF MEDICAL LUNG NOT IMAGING ASS ELSEWHERE CLASSIFIED 86211 FEVER 07-13-2014 [facility] UNSPECIFIED [facility] V148 PERSONAL 07-13-2014 [facility] ALLERGY [facility] P SPEC MEDICINAL AGTS V1582 PERS HX 03-17-2014 [facility] TOBACCO USE HEALTH PRESENTING DEPARTMENT HAZARDS HEALTH V700 ROUTINE 03-17-2014 [facility] GENERAL HEALTH MEDICAL DEPARTMENT [email or web address] FACL V8530 BODY MASS 03-17-2014 [facility] INDEX HEALTH 30.0-30.9 DEPARTMENT ADULT 75736 ABDOMINAL 12-29-2013 [facility] PAIN, LEFT [facility] UPPER INC QUADRANT 08497 ABDOMINAL 12-29-2013 [facility] PAIN OTHER MEDICAL SPECIFIED IMAGING ASS SITE 65737 DISPLCMT 10-09-2013 [facility] LUMBAR MEDICAL INTERVERT [facility] DISC W/O MYELOPATHY Procedures Procedure DOS Code Location Performer Comment ANES 44974 [facility] SIMMS JOSE CARLOS INTEG 5 ANESTH EXTREMITI OF THE ANT BLUE TRUNK & PERINEUM NOS UNCLASSIF J3490 [facility] IED DRUGS 5 [facility] INC INC INJECTION J0131 [facility] ACETAMINO INC INC PHEN 10 MG EXCISION 63369 [facility] SHAKEEL TOD MAL 5 PHYSICIAN LESION S GROUP TRUNK/ARM /LEG 2.1-3.0 CM INJECTION J2405 [facility] 5 [facility] ONDANSETR INC INC ON HCL PER 1 MG EXC B9 38664 [facility] SHAKEEL TOD LESION 5 PHYSICIAN MRGN XCP S GROUP SK TG T/A/L 0.6-1[place] [address] [facility] PEDRO PAT SURG 5 [facility] PATHOLOGY GROSS&BONNIE ROSCOPIC EXAM PRESSURIZ 82997 [facility] ED/NONPRE 5 [facility] SSURIZED [place] [address] [facility] INFUSION 5 [facility] THERAPY/P INC INC ROPHYLAXI S /DX 1ST TO 1 [place] [address] [facility] INFUSION 5 [facility]OS[facility] THERAPY INC INC PROPHYLAX IS/DX EA HOUR THERAPEUT 49956 [facility] IC 5 [facility] H[facility] INJECTION INC INC IV PUSH EACH NEW DRUG EXC B9 72299 [facility] SHAKEEL TOD LESION 5 PHYSICIAN MRGN XCP S GROUP SK TG T/A/L >4.0 CM BLOOD 20955 [facility] COUNT 5 [facility] H[facility] COMPLETE INC INC AUTO&AUTO DIFRNTL WBC COLLECTIO 77849 [facility] N VENOUS 5 [facility] BLOOD INC INC VENIPUNCT URE BASIC 24092 [facility] METABOLIC 5 [facility] PANEL INC INC CALCIUM TOTAL ECG 52058 [facility] RICE JR ROUTINE 5 [facility] W/LEAST P 12 LDS I&R ONLY RADIOLOGI 80963 [facility] C EXAM 5 [facility] CHEST 2 INC INC VIEWS FRONTAL&L ATERAL SCREENING G0202 [facility] 5 [facility] H[facility] MAMMOGRAP INC INC HY INNA INCL CAD WHEN PERFORMD COMPUTER- 04710 [facility] AIDED 5 [facility] DETECTION INC INC SCREENING MAMMOGRAP HY ECG 49189 [facility] ROUTINE 5 [facility] ECG INC INC W/LEAST 12 LDS TRCG ONLY W/O I&R O2 CONC 1 E1390 [employer] 5 INC INC 85%/>[address] [facility] [place] [address] MARTAALIYA OLMEDOAR CRI DX/THER 5 MD ESTER, SBST PSC EPIDURAL/ SUBARACH LUMBAR/SA CRAL FLUOR 18706 MARTAALIYA OLMEDOAR CRI NEEDLE/CA 5 MD ESTER, TH PSC SPINE/PAR ASPINAL DX/THER ADDON SPMTRY 38253 [facility] W/VC 5 Y Y [facility] Y BRUCE W/WO MXML VOL VNTJ EXCISION 26089 [facility] MAL 5 [facility] HOSP LESION INC INC TRUNK/ARM /LEG 1.1-2.0 CM EXCISION 39605 [facility] MAL 5 [facility] LESION INC INC TRUNK/ARM /LEG 0.6-1[place] [address] [facility] HORACE SURG 5 [facility] LUCIEN PATHOLOGY GROSS&BONNIE ROSCOPIC EXAM EXCISION 83453 [facility] MAL 5 [facility] HOSP LESION INC INC TRUNK/ARM /LEG 2.1-3.0 CM EXC B9 26597 [facility] LESION 5 [facility] HOSP MRGN XCP INC INC SK TG T/A/L 1.1-2.0 CM O2 CONC 1 E1390 [employer] 5 INC INC 85%/>02 CONC AT PRSC FLW RATE O2 CONC 1 E1390 [place] [address] INC INC 85%/>02 CONC AT PRSC FLW RATE RADIOLOGI 32602 [facility] 5 MEDICAL WEN EXAMINATI IMAGING ON CHEST ASS SINGLE VIEW FRONTAL O2 CONC 1 E1390 [place] [address] INC INC 85%/>02 CONC AT PRSC FLW RATE INJECTION J1030 [facility]NA 5 [facility] HOSP METHYLPRE INC INC DNISOLONE ACETATE 40 MG LOCM Q9967 [facility] 300-399 5 [facility] MG/ML INC INC IODINE CONCENTRA TION PER ML INJECTION J1040 [facility] 5 [facility] METHYLPRE INC INC DNISOLONE ACETATE 80 [place] NJX 48622 [facility] DX/THER 5 [facility] SBST INC INC EPIDURAL/ SUBARACH LUMBAR/SA CRAL FLUOR 15586 MADAR BUX BUX ANJ NEEDLE/CA 5 MD VINCENT SPINE/PAR ASPINAL DX/THER ADDON RADEX 93426 [facility] SPINE 5 [facility] THORACIC INC INC 2 VIEWS RADIOLOGI 60452 [facility] C EXAM 5 [facility] CHEST 2 INC INC VIEWS FRONTAL&L ATERAL RADEX 03397 [place] [facility] SPINE 5 MEDICAL WEN THORACIC IMAGING 3 VIEWS ASS O2 CONC 1 E1390 [employer] 5 INC INC 85%/>02 CONC AT PRS FLW RATE O2 CONC 1 E1390 [employer] 5 INC INC 85%/>02 CONC AT [facility] FLW RATE APPLICATI 57681 [facility] ON 5 [facility] MODALITY INC INC 1/> AREAS HOT/COLD PACKS APPL 83791 [facility] MODALITY 5 [facility] 1/> AREAS INC INC ELEC STIMJ UNATTENDE D THERAPEUT 02050 [facility] IC PX 1/> 5 [facility] AREAS INC INC EACH 15 MIN EXERCISES FLUOR 42517 [facility] NEEDLE/CA 5 [facility] TH INC INC SPINE/PAR ASPINAL DX/THER ADDON UNCLASSIF J3490 [facility] IED DRUGS 5 [facility] [place]OS[facility] [place] NJX 89381 [facility] DX/THER 5 [facility] SBST INC INC EPIDURAL/ SUBARACH LUMBAR/SA CRAL LOCM Q9966 [facility] 200-299 5 [facility] MG/ML INC INC IODINE CONCENTRA TION PER ML APPL 01744 [facility] MODALITY 5 [facility] 1/> AREAS INC INC ELEC STIMJ UNATTENDE D APPLICATI 54852 [facility] ON 5 [facility]OS[facility] MODALITY INC INC 1/> AREAS HOT/COLD PACKS THERAPEUT 09806 [facility] IC PX 1/> 5 [facility] AREAS INC INC EACH 15 MIN EXERCISES RADIOLOGI 38157 [place] WARD LOVE C EXAM 5 MEDICAL CHEST 2 SERV VIEWS FOUNDATIO FRONTAL&L N ATERAL APPL 89332 [facility] MODALITY 5 [facility] 1/> AREAS INC INC ELEC STIMJ UNATTENDE D THERAPEUT 49330 [facility] IC PX 1/> 5 [facility]OS[facility] AREAS INC INC EACH 15 MIN EXERCISES LUMB L0627 [facility] 5 TECHNOLOG TECHNOLOG SAGIT IES INC IES INC CNTRL RIGID A&P PANEL PREFAB APPLICATI 38685 [facility] ON 5 [facility] MODALITY INC INC 1/> AREAS HOT/COLD PACKS APPLICATI 32840 [facility] ON 5 [facility] MODALITY INC INC 1/> AREAS HOT/COLD PACKS THERAPEUT 29405 [facility] IC PX 1/> 5 [facility] AREAS INC INC EACH 15 MIN EXERCISES APPL 72412 [facility] MODALITY 5 [facility] 1/> AREAS INC INC ELEC STIMJ UNATTENDE D O2 CONC [address] INC 85%/>02 CONC AT PRS FLW RATE SPMTRY 61798 ANT PEDROZA W/VC 5 MEDICAL PHILLIPS EXPIRATOR SERV MAR Y BRUCE FOUNDATIO W/WO MXML N VOL VNTJ PHYSICAL 64556 [facility] THERAPY 5 [facility] EVALUATIO INC INC N O2 CONC [address] INC 85%/>02 [place] [address] [facility] THYROXINE 5 [facility] TOTAL INC INC GONADOTRO 53461 [facility] PIN 5 [facility] FOLLICLE INC INC STIMULATI NG HORMONE HEMOGLOBI 30366 [facility] N 5 [facility] MEM [facility]OS[facility] GLYCOSY[place] [address] [facility] THYROID 5 [facility] STIMULATI INC INC NG HORMONE TSH COMPREHEN 96584 [facility] SIVE 5 [facility] METABOLIC INC INC PANEL CYANOCOBA 86785 [facility] JUVENTINO 5 [facility] VITAMIN INC INC B-12 GONADOTRO 75443 [facility] PIN 5 [facility] LUTEINIZI INC INC NG HORMONE BLOOD 60674 [facility] MILESON COUNT 5 [facility] COMPLETE INC INC AUTO&AUTO DIFRNTL WBC O2 CONC 1 E1390 [facility] [place] 5 INC INC 85%/>02 CONC AT PRSC FLW RATE UNCLASSIF J3490 [facility] IED DRUGS 5 [facility] INC INC RADIOLOGI 43855 [facility] C EXAM 5 [facility] CHEST 2 INC INC VIEWS FRONTAL&L ATERAL IAADI 04666 [facility] INFLUENZA 5 [facility] B VIRUS INC INC IAADI 96749 [facility] INFFLUENZ 5 [facility] A A VIRUS INC INC O2 CONC [address] [facility] [place] 4 INC INC 85%/>02 CONC AT PRSC FLW RATE O2 CONC [address] [facility] 4 INC INC 85%/>02 CONC AT PRSC FLW RATE O2 CONC [address] [facility] 4 INC INC 85%/>02 CONC AT PRSC FLW RATE O2 CONC [address] [facility] 4 INC INC 85%/>02 CONC AT PRSC FLW RATE O2 CONC [address] [facility] 4 INC INC 85%/>02 CONC [address] PRSC FLW R[place] CT THORAX 70825 [facility] 4 [facility] W/CONTRAS INC INC T MATERIAL 3D 03623 [facility] RENDERING 4 [facility] INC INC W/INTERP& [place] [address] [facility] UREA 4 [facility] NITROGEN INC INC QUANTITAT KANE CREATININ 63519 [facility] E BLOOD 4 [facility] INC INC O2 CONC [address] [facility] 4 INC INC 85%/>02 CONC AT PRSC FLW RATE RADEX ABD 72180 [facility] COMPL 4 [facility] AQT ABD INC INC W/S/E/D VIEWS 1 VIEW CH COMPREHEN 54742 [facility] SIVE 4 [facility] [place] [address] [facility] AMYLASE 4 [place] [address] [facility] LIPASE 4 [facility] INC INC BLOOD 38930 [facility] COUNT 4 [facility] COMPLETE INC INC AUTO&AUTO DIFRNTL WBC O2 CONC [address] [facility] 4 INC INC 85%/>02 CONC AT PRSC FLW RATE O2 CONC [address] [facility] 4 INC INC 85%/>02 CONC AT PRSC FLW RATE SPMTRY 64886 [place] BENSADOUN W/VC 4 MEDICAL KHADAR EXPIRATOR SERV Y BRUCE FOUNDATIO W/WO MXML VOL VNTJ O2 CONC 1 E1390 [facility] [place] 4 85%/>02 CONC AT PRS FLW RATE MRI 97311 JIMMYMUSCOGEEMykel UIR SPINAL 4 MEDICAL [place] CANAL IMAGING LUMBAR ASS W/O CONTRAST MATERIAL 3D 84443 JIMMYMUSCOGEEMykel URI RENDERING 4 MEDICAL [place] IMAGING W/INTERP& [place] [address] [facility] THYROXINE 4 [facility] [place] [address] [facility] THYROID 4 [facility] STIMULATI INC INC NG HORMONE TSH HEMOGLOBI 38728 [facility] N 4 [facility] GLYCOSYLA INC INC DIVINE A1C LIPID 89519 [facility] PANEL 4 [facility] INC INC COMPREHEN 80892 [facility] SIVE 4 [facility] METABOLIC INC INC PANEL BLOOD 35370 [facility] COUNT 4 [facility] COMPLETE INC INC AUTO&AUTO DIFRNTL WBC O2 CONC 1 E1390 [facility] [place] 4 85%/>02 CONC AT PRSC FLW RATE Encounters Encounter Start End Date Code Location Performer Type Date [facility] - 5 5 [facility] OUTPATIEN [facility] - 5 5 [facility] - 5 5 [facility] 5 5 [facility] OUTPATIEN INC T OFFICE 71653 [facility] SHAKEEL TSERING CONSULTAT 5 5 PHYSICIAN ION S GROUP NEW/ESTAB PATIENT 30 MIN OFFICE 96471 [facility] OUTPATIEN 5 5 [facility] T VISIT INC 10 MINUTES HOSPITAL [facility] - 5 5 [facility] OUTPATIEN INC T EMERGENCY 66679 [facility] DEPT 5 5 PHYSICIAN GOODRICH VISIT S, [facility] HIGH SEVERITY& THREAT [facility] - 5 5 [facility] OUTPATIEN [facility] - 5 5 [facility] OUTPATIEN [facility] T OFFICE 39897 [facility] OUTPATIEN 5 5 [facility] T VISIT INC 10 MINUTES HOSPITAL [facility] - 5 5 [facility] OUTPATIEN [facility] - 5 5 [facility] OUTPATIEN [facility] H[facility] - 5 5 [facility] OUTPATIEN [facility] OFFICE 00837 [facility] Y T VISIT 5 HOSPITAL MINUTES OFFICE [address]20 [place] SABA CONSULTAT 5 5 MEDICAL FISTER ION SERV JOE NEW/ESTAB FOUNDATIO PATIENT N 40 MIN HOSPITAL UNIVERSIT - 5 5 [facility] - 5 5 [facility] OUTPATIEN INC T OFFICE 60141 NAMRATA BORDEN OUTPATIEN 5 5 MD [place] [facility] 20 MINUTES [facility] - 5 5 [facility] OUTPATIEN INC HOSPITAL [facility] - 5 5 [facility] OUTPATIEN INC T EMERGENCY 12278 [facility] 5 5 [facility] DEPARTMEN INC T VISIT LOW/MODER SEVERITY [address]OD[address] 4 4 [facility] E MED EST PATIENT [facility] 40-64YRS T [facility] - 4 4 [facility] Vanegas 4 4 [facility] OUTPATIEN [facility] OFFICE 18466 [facility] OUTPATIEN 4 4 MEDICAL T NEW 30 SERV MINUTES [facility] Mena 4 [facility]EN [facility]
--- OUTSIDE RECORDS SUMMARY | 2017-01-20 22:35 | External Medical Summary Rpt ---
Author Author , QUAN Organization QUAN Address Unknown Phone [email or web address] Team Providers Care Intelligence Agent Name Role Phone [facility], [facility] Unavailable Unavailable [employer] Unavailable Unavailable INC, [employer] MARTA NORMAN MD, PSC, Unavailable Unavailable MARTA NORMAN MD, PSC BEINEKE WEN, VALENCIA Unavailable Unavailable WEN BENSADOUN KHADAR, Unavailable Unavailable BENSADOUN KHADAR [facility] Unavailable Unavailable DEPARTMENT, [facility] DEPARTMENT [facility] Unavailable Unavailable DEPARTMENT, [facility] DEPARTMENT BUX ANJ, BUX ANJ Unavailable Unavailable [facility] Unavailable Unavailable [facility] PEDRO PAT, PERDO PAT Unavailable Unavailable URI TAHIRA, Unavailable Unavailable URI TAHIRA SIMMS JOSE CARLOS, SIMMS JOSE CARLOS Unavailable Unavailable FAUGHN GOODRICH, FAUGHN Unavailable Unavailable GOODRICH [facility] Unavailable Unavailable INC, [facility] Unavailable Unavailable HOSPITAL P, [facility], Unavailable Unavailable [facility] WARD LOVE, WARD LOVE Unavailable Unavailable SABA FISTER JOE, Unavailable Unavailable SABA FISTER JOE [facility] Unavailable Unavailable [facility], [facility] Unavailable [...] Unavailable CLARISSA PHI, CLARISSA PHI Unavailable Unavailable [facility], Unavailable Unavailable [facility], Unavailable Unavailable [facility] Purpose Continuity of Care Document - 09-13-2013 through 2016 Problems Code Diagnosis DOS Provider Status 19399 BASAL CELL 04-05-2015 [facility] SKIN LOWER LIMB INCL HIP 2298 BENIGN 04-05-2015 [facility] NEOPLASM OF PHYSICIANS OTHER GROUP SPECIFIED SITES 00216 OTHER ACUTE 04-05-2015 [facility] PAIN PHYSICIANS GROUP 7020 ACTINIC 04-05-2015 [facility] KERATOSIS PHYSICIANS GROUP 29675 OTHER 04-05-2015 [facility] SEBORRHEIC PHYSICIANS KERATOSIS GROUP 7099 UNSPECIFIED 04-05-2015 [facility] AN[facility] OF OF THE BLUE SKIN&SUBCUT ANEOUS TISSUE V7284 UNSPECIFIED 04-01-2015 [facility] PRE-OPERATI INC VE EXAMINATION 5180 PULMONARY 03-22-2015 [facility] 7862 COUGH 03-22-2015 [facility] V7611 SCREENING 03-22-2015 [facility] MAMMOGRAM [facility]ICAL FOR [facility]ING ASS HIGH-RISK PATIENT V7612 OTHER 03-22-2015 [facility] P 496 CHRONIC 03-20-2015 [facility] AIRWAY OBSTRUCTION NEC 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, LUMBAR/LUMB , PSC OSACRAL INTERVERTEB RAL DISC 19245 ASTHMA, 03-08-2015 [facility] , UNSPECIFIED STATUS 58707 BASAL CELL 02-22-2015 [facility] PHYSICIANS SKIN TRUNK GROUP EXCEPT SCROTUM 12017 SQUAMOUS 02-22-2015 [facility] SKIN TRUNK EXCPT SCROTUM 42697 BASAL CELL 02-22-2015 [facility] SKIN UPPER LIMB INCL SHOULD 2382 NEOPLASM OF 02-02-2015 [facility] UNCERTAIN PHYSICIANS BEHAVIOR OF GROUP SKIN 7244 THORACIC/MARIANGEL 12-31-2014 NAMRATA OBRIEN MD NEURITIS/RA DICULITIS UNSPEC 14168 SHORTNESS 12-26-2014 [facility] 43665 CHEST PAIN 12-26-2014 [facility] UNSPECIFIED [facility] 89892 PAINFUL 12-26-2014 [facility] 7245 UNSPECIFIED 11-22-2014 [facility] 7242 LUMBAGO 10-06-2014 [facility] V571 OTHER 10-06-2014 [facility] THERAPY INC 6989 UNSPECIFIED 09-29-2014 [facility] PRURITIC SERV DISORDER [facility] 7820 DISTURBANCE 09-29-2014 [facility] MEDICAL OF SKIN SERV SENSATION [facility] 6115 OTHER AND 08-03-2014 [facility]NSPEC[facility]IED [facility] INC HYPERLIPIDE JODIE 39395 UNSPECIFIED 07-13-2014 [facility] VIRAL [facility] P IN CCE & UNS SITE 4928 OTHER 07-13-2014 [facility]MPHYSEMA [facility] 69262 OTHER 07-13-2014 [place] DISEASES OF MEDICAL LUNG NOT IMAGING ASS ELSEWHERE CLASSIFIED 15579 FEVER 07-13-2014 [facility] UNSPECIFIED [facility] V148 PERSONAL 07-13-2014 [facility] P SPEC MEDICINAL AGTS V1582 PERS HX 03-17-2014 [facility] TOBACCO USE HEALTH PRESENTING DEPARTMENT HAZARDS HEALTH V700 ROUTINE 03-17-2014 [facility] GENERAL HEALTH MEDICAL DEPARTMENT [email or web address] CARE FACL V8530 BODY MASS 03-17-2014 [facility] INDEX HEALTH 30.0-30.9 DEPARTMENT ADULT 17082 ABDOMINAL 12-29-2013 [facility] PAIN, LEFT [facility] UPPER INC QUADRANT 99180 ABDOMINAL 12-29-2013 [facility] PAIN OTHER MEDICAL SPECIFIED IMAGING ASS SITE 74764 DISPLCMT 10-09-2013 [place] LUMBAR MEDICAL INTERVERT [facility] ASS DISC W/O MYELOPATHY Procedures Procedure DOS Code Location Performer Comment ANES 05973 [facility] SIMMS JOSE CARLOS INTEG 5 ANESTH EXTREMITI OF THE ANT BLUE TRUNK & PERINEUM NOS UNCLASSIF J3490 [facility] IED DRUGS 5 [facility] INC INC INJECTION J0131 [facility] ACETAMINO INC INC PHEN 10 MG EXCISION 90991 [facility] SHAKEEL TOD MAL 5 PHYSICIAN LESION S GROUP TRUNK/ARM /LEG 2.1-3.0 CM INJECTION J2405 [facility] 5 [facility] ONDANSETR INC INC ON HCL PER 1 MG EXC B9 60602 [facility] SHAKEEL TOD LESION 5 PHYSICIAN MRGN XCP S GROUP SK TG T/A/L 0.6-1[place] [address] [facility] PEDRO PAT SURG 5 [facility] PATHOLOGY GROSS&BONNIE ROSCOPIC EXAM PRESSURIZ 72130 [facility] ED/NONPRE 5 [facility] SSURIZED [place] [address] [facility] INFUSION 5 [facility] THERAPY/P INC INC ROPHYLAXI S /DX 1ST TO 1 [place] [address] [facility] INFUSION 5 [facility] THERAPY INC INC PROPHYLAX IS/DX EA HOUR THERAPEUT 65529 [facility] IC 5 [facility] INJECTION INC INC IV PUSH EACH NEW DRUG EXC B9 62222 [facility] SHAKEEL TOD LESION 5 PHYSICIAN MRGN XCP S GROUP SK TG T/A/L >4.0 CM BLOOD 87081 [facility] COUNT 5 [facility] COMPLETE INC INC AUTO&AUTO DIFRNTL WBC COLLECTIO 83316 [facility] N VENOUS 5 [facility] BLOOD INC INC VENIPUNCT URE BASIC 04569 [facility] METABOLIC 5 [facility] PANEL INC INC CALCIUM TOTAL ECG 09741 [facility] RICE JR ROUTINE 5 [facility] W/LEAST P 12 LDS I&R ONLY RADIOLOGI 01252 [facility] C EXAM 5 [facility] CHEST 2 INC INC VIEWS FRONTAL&L ATERAL SCREENING G0202 [facility] 5 [facility] MAMMOGRAP INC INC HY INNA INCL CAD WHEN PERFORMD COMPUTER- 27756 [facility] AIDED 5 [facility] DETECTION INC INC SCREENING MAMMOGRAP HY ECG 60124 [facility] ROUTINE 5 [facility] ECG INC INC W/LEAST 12 LDS TRCG ONLY W/O I&R O2 CONC 1 E1390 [facility] 5 INC INC 85%/>02 [facility] [place] [address] MARTAALIYA OLMEDOAR CRI DX/THER 5 MD ESTER, SBST PSC EPIDURAL/ SUBARACH LUMBAR/SA CRAL FLUOR 62390 MARTAALIYA OLMEDOAR CRI NEEDLE/CA 5 MD ESTER, TH PSC SPINE/PAR ASPINAL DX/THER ADDON SPMTRY 44979 [facility] W/VC 5 Y Y [facility] [place] [facility] BRUCE W/WO MXML VOL VNTJ EXCISION 33915 [facility] MAL 5 [facility] LESION INC INC TRUNK/ARM /LEG 1.1-2.0 CM EXCISION 63065 [facility] MAL 5 [facility] LESION INC INC TRUNK/ARM /LEG 0.6-1[place] [address] [facility], HORACE SURG 5 [facility] PATHOLOGY GROSS&BONNIE ROSCOPIC EXAM EXCISION 86156 [facility] MAL 5 [facility] LESION INC INC TRUNK/ARM /LEG 2.1-3.0 CM EXC B9 67432 [facility] LESION 5 [facility] MRGN XCP INC INC SK TG T/A/L 1.1-2.0 CM O2 CONC 1 E1390 [facility] 5 INC INC 85%/>02 CONC AT PRSC FLW RATE O2 CONC 1 E1390 [place] [address] INC INC 85%/>02 CONC AT PRSC FLW RATE RADIOLOGI 89351 [facility] 5 MEDICAL WEN EXAMINATI IMAGING ON CHEST ASS SINGLE VIEW FRONTAL O2 CONC 1 E1390 [place] [address] INC INC 85%/>02 CONC AT PRSC FLW RATE INJECTION J1030 [facility] 5 [facility] METHYLPRE INC INC DNISOLONE ACETATE 40 MG LOCM Q9967 [facility] 300-399 5 [facility] MG/ML INC INC IODINE CONCENTRA TION PER ML INJECTION J1040 [facility] 5 [facility] METHYLPRE INC INC DNISOLONE ACETATE 80 MG NJX 79863 [facility] DX/THER 5 [facility] SBST INC INC EPIDURAL/ SUBARACH LUMBAR/SA CRAL FLUOR 60648 MAD[facility] BUX BUX ANJ NEEDLE/CA 5 MD VINCENT SPINE/PAR ASPINAL DX/THER ADDON RADEX 94306 [facility] SPINE 5 [facility] THORACIC INC INC 2 VIEWS RADIOLOGI 85373 [facility] C EXAM 5 [facility] CHEST 2 INC INC VIEWS FRONTAL&L ATERAL RADEX 98631 [place] [facility] SPINE 5 MEDICAL WEN THORACIC IMAGING 3 VIEWS ASS O2 CONC 1 E1390 [facility] 5 INC INC 85%/>02 CONC AT PRS FLW RATE O2 CONC 1 E1390 [facility] 5 INC INC 85%/>02 CONC AT [facility] FLW RATE APPLICATI 33839 [facility] ON 5 [facility]OS[facility] MODALITY INC INC 1/> AREAS HOT/COLD PACKS APPL 27698 [facility] MODALITY 5 [facility]OS[facility] 1/> AREAS INC INC ELEC STIMJ UNATTENDE D THERAPEUT 97244 [facility] IC PX 1/> 5 [facility]OS[facility] AREAS INC INC EACH 15 MIN EXERCISES FLUOR 04042 [facility] NEEDLE/CA 5 [facility] TH INC INC SPINE/PAR ASPINAL DX/THER ADDON UNCLASSIF J3490 [facility] IED DRUGS 5 [facility]OS[facility] INC INC NJX 16487 [facility] DX/THER 5 [facility] SBST INC INC EPIDURAL/ SUBARACH LUMBAR/SA CRAL LOCM Q9966 [facility] 200-299 5 [facility] MG/ML INC INC IODINE CONCENTRA TION PER ML APPL 56862 [facility] MODALITY 5 [facility]OS[facility] 1/> AREAS INC INC ELEC STIMJ UNATTENDE D APPLICATI 36530 [facility] ON 5 [facility]OS[facility] MODALITY INC INC 1/> AREAS HOT/COLD PACKS THERAPEUT 80289 [facility] IC PX 1/> 5 [facility] AREAS INC INC EACH 15 MIN EXERCISES RADIOLOGI 78779 [place] WARD LOVE C EXAM 5 MEDICAL CHEST 2 SERV VIEWS FOUNDATIO FRONTAL&L N ATERAL APPL 11773 [facility] MODALITY 5 [facility] 1/> AREAS INC INC ELEC STIMJ UNATTENDE D THERAPEUT 16490 [facility] IC PX 1/> 5 [facility]OS[facility] AREAS INC INC EACH 15 MIN EXERCISES LUMB L0627 [facility] 5 TECHNOLOG TECHNOLOG SAGIT IES INC IES INC CNTRL RIGID A&P PANEL PREFAB APPLICATI 16014 [facility] ON 5 [facility]OS[facility] MODALITY INC INC 1/> AREAS HOT/COLD PACKS APPLICATI 94678 [facility] ON 5 [facility]OS[facility] MODALITY INC INC 1/> AREAS HOT/COLD PACKS THERAPEUT 18054 [facility] IC PX 1/> 5 [facility]OS[facility] AREAS INC INC EACH 15 MIN EXERCISES APPL 03382 [facility] MODALITY 5 [facility] 1/> AREAS INC INC ELEC STIMJ UNATTENDE D O2 CONC [address] INC 85%/>02 CONC AT PRS FLW RATE SPMTRY 99909 ANT PEDROZA W/VC 5 MEDICAL PHILLIPS EXPIRATOR SERV MAR Y BRUCE FOUNDATIO W/WO MXML N VOL VNTJ PHYSICAL 75514 [facility] THERAPY 5 [facility] EVALUATIO INC INC N O2 CONC [address] INC 85%/>02 [place] [address] [facility] THYROXINE 5 [facility] TOTAL INC INC GONADOTRO 52526 [facility] PIN 5 [facility] FOLLICLE INC INC STIMULATI NG HORMONE HEMOGLOBI 96464 [facility] N 5 [facility] MEM [facility]OS[facility] GLYCOSY[place] [address] [facility] THYROID 5 [facility]OS[facility] STIMULATI INC INC NG HORMONE TSH COMPREHEN 81647 [facility] SIVE 5 [facility] METABOLIC INC INC PANEL CYANOCOBA 22848 [facility] JUVENTINO 5 [facility]OS[facility] VITAMIN INC INC B-12 GONADOTRO 41791 [facility] PIN 5 [facility]OS[facility] LUTEINIZI INC INC NG HORMONE BLOOD 73520 [facility] MILESON COUNT 5 [facility]OS[facility] COMPLETE INC INC AUTO&AUTO DIFRNTL WBC O2 CONC 1 E1390 [facility] [place] 5 INC INC 85%/>02 CONC AT PRSC FLW RATE UNCLASSIF J3490 [facility] IED DRUGS 5 [facility] INC INC RADIOLOGI 07798 [facility] C EXAM 5 [facility] CHEST 2 INC INC VIEWS FRONTAL&L ATERAL IAADI 92516 [facility] INFLUENZA 5 [facility] B VIRUS INC INC IAADI 95776 [facility] INFFLUENZ 5 [facility]OS[facility] A A VIRUS INC INC O2 CONC 1 E1390 [facility] PORT 4 INC INC 85%/>02 CONC AT PRSC FLW RATE O2 CONC 1 E1390 [facility] PORT 4 INC INC 85%/>02 CONC AT PRSC FLW RATE O2 CONC 1 E1390 [facility] PORT 4 INC INC 85%/>02 CONC AT PRSC FLW RATE O2 CONC 1 E1390 [facility] PORT 4 INC INC 85%/>02 CONC AT PRSC FLW RATE O2 CONC 1 E1390 [facility] PORT 4 INC INC 85%/>02 CONC [address] PRSC FLW R[address] THORAX 25676 [facility] 4 [facility] W/CONTRAS INC INC T MATERIAL 3D 18014 [facility] RENDERING 4 [facility] INC INC W/INTERP& [place] [address] [facility] UREA 4 [facility] H[facility] NITROGEN INC INC QUANTITAT KANE CREATININ 65723 [facility] E BLOOD 4 [facility] INC INC O2 CONC 1 E1390 [facility] PORT 4 INC INC 85%/>02 CONC AT PRSC FLW RATE RADEX ABD 80063 [facility] COMPL 4 [facility] AQT ABD INC INC W/S/E/D VIEWS 1 VIEW CH COMPREHEN 77007 [facility] SIVE 4 [facility] [place] [address] [facility] AMYLASE 4 [place] [address] [facility] LIPASE 4 [facility] INC INC BLOOD 40381 [facility] COUNT 4 [facility] H[facility] COMPLETE INC INC AUTO&AUTO DIFRNTL WBC O2 CONC 1 E1390 [facility] PORT 4 INC INC 85%/>02 CONC AT PRSC FLW RATE O2 CONC 1 E1390 [facility] PORT 4 INC INC 85%/>02 CONC AT PRSC FLW RATE SPMTRY 27084 [place] BENSADOUN W/VC 4 MEDICAL KHADAR EXPIRATOR SERV Y BRUCE FOUNDATIO W/WO MXML VOL VNTJ O2 CONC 1 E1390 [facility] [place] 4 85%/>02 CONC AT PRS FLW RATE MRI 68840 [facility] URI SPINAL 4 MEDICAL [place] CANAL IMAGING LUMBAR ASS W/O CONTRAST MATERIAL 3D 17619 [facility]LLMykel URI RENDERING 4 MEDICAL [place] IMAGING W/INTERP& [place] [address] [facility] THYROXINE 4 [facility] H[facility] [place] [address] [facility] THYROID 4 [facility] STIMULATI INC INC NG HORMONE TSH HEMOGLOBI 40942 [facility] N 4 [facility] GLYCOSYLA INC INC DIVINE A1C LIPID 51273 [facility] PANEL 4 [facility] INC INC COMPREHEN 21078 [facility] SIVE 4 [facility] H[facility] METABOLIC INC INC PANEL BLOOD 45420 [facility] COUNT 4 [facility] COMPLETE INC INC AUTO&AUTO DIFRNTL WBC O2 CONC 1 E1390 [facility] [place] 4 85%/>02 CONC AT PRSC FLW RATE Encounters Encounter Start End Date Code Location Performer Type Date [facility] - 5 5 [facility] OUTPATIEN [facility] - 5 5 [facility] OUTPATIEN [facility] - 5 5 [facility] OUTPATIEN [facility]IVERSIT - 5 5 [facility] - 5 5 [facility] OUTPATIEN INC T OFFICE 62906 [facility] SHAKEEL TSERING CONSULTAT 5 5 PHYSICIAN ION S GROUP NEW/ESTAB PATIENT 30 MIN OFFICE 17361 [facility] OUTPATIEN 5 5 [facility] T VISIT INC 10 MINUTES HOSPITAL [facility] - 5 5 [facility] OUTPATIEN INC T EMERGENCY 37757 MAURO ELLER DEPT 5 5 PHYSICIAN GOODRICH VISIT S, [facility] HIGH SEVERITY& THREAT [facility] - 5 5 [facility] OUTPATIEN [facility] - 5 5 [facility] OUTPATIEN [facility] T OFFICE 45438 [facility] OUTPATIEN 5 5 [facility] T VISIT INC 10 MINUTES HOSPITAL [facility] - 5 5 [facility] OUTPATIEN [facility] - 5 5 [facility] OUTPATIEN [facility] - 5 5 [facility] OUTPATIEN [facility] OFFICE 52437 [facility] T VISIT 5 HOSPITAL MINUTES OFFICE 64399 [place] SABA CONSULTAT 5 5 MEDICAL FISTER ION SERV JOE NEW/ESTAB FOUNDATIO PATIENT N 40 MIN HOSPITAL [facility]ERSIT - 5 5 [facility] - 5 5 [facility] OUTPATIEN INC T OFFICE 13714 NAMRATA BORDEN OUTPATIEN 5 5 MD [facility] 20 MINUTES [facility] - 5 5 [facility] OUTPATIEN INC HOSPITAL [facility] - 5 5 [facility] OUTPATIEN INC T EMERGENCY 43432 [facility] 5 5 MEM H[facility] DEPARTMEN INC T VISIT LOW/MODER SEVERITY [address]ODIC [address] 4 [facility] E MED EST PATIENT [facility] 40-64YRS T [facility] - 4 4 [facility]PATI[facility] Vanegas 4 4 [facility] OUTPATI[facility] OFFICE 06116 [facility] 4 4 MEDICAL T NEW 30 SERV MINUTES [facility]NA Mena 4 [facility] OUTPATIEN [facility]
--- OUTSIDE RECORDS SUMMARY | 2017-01-20 22:36 | External Medical Summary Rpt ---
Author Author QUAN Quintero, QUAN Quintero Organization [employer] Address Unknown Phone Unavailable
--- OUTSIDE RECORDS SUMMARY | 2017-01-20 22:36 | External Medical Summary Rpt ---
Demographics Preferred Language Uzbek Marital Status Unknown Jehovah'S Witness Affiliation Unknown Race Unknown Ethnic Group Unknown Author Author QUAN Address Unknown Phone Immunization No patient found.
--- OUTSIDE RECORDS SUMMARY | 2017-01-20 22:36 | External Medical Summary Rpt ---
Demographics Preferred Language Danish Marital Status Unknown Yazdanism Affiliation Unknown Race Unknown Ethnic Group Unknown Author Author QUAN Address Unknown Phone Immunization No patient found.
[2017-01-20 22:41] LABS: LYMPH # 1.4 K/mm3 (0.7-4.5)
[2017-01-21] MEDS ORDERED: LEVAQUIN500 MG PO (00:34)
[2017-01-21] MEDS ORDERED: TESSALON PERLE100 MG PO (00:34)
[2017-01-21] MEDS ORDERED: PREDNISONE 20MG20 MG PO (00:34)
[2017-01-21 01:43] VITALS: BP 144/83
--- NOTE | 2017-01-21 08:14 | RADIOLOGY REPORT PS360 ---
CHEST(2 VIEWS-NOT PORTABLE) HISTORY: Chest pain with cough and fever, current smoker COUGH- FEVER ORDERING PHYSICIAN: Anthony Deng MD PATIENT AGE: 56 years COMPARISON: 03/22/2015 FINDINGS: The cardiomediastinal silhouette and pulmonary vascularity are within normal limits. No lobar consolidation or collapse is evident. There is COPD with chronic coarsening of the bronchovascular markings.. No acute bony abnormalities. IMPRESSION: COPD, no change with no acute finding
== END 2017-01-21 01:45 | disposition home or self-care (01) ==
LOC: ER 21:49
PROVIDERS: Emergency Medicine
DX: J20.9 Acute bronchitis, unspecified (principal); I10 Essential (primary) hypertension; Z72.0 Tobacco use

== ENCOUNTER → 2017-06-20 | Outpatient (CLI) | payer MEDICARE ==
[~2017-06-20] MED LIST changes: +LEVAQUIN500 MG PO; +PREDNISONE 20MG20 MG PO; +TESSALON PERLE100 MG PO
[2017-06-20 17:35] LABS: LYMPH % 20.4 % (10-50.0)
[2017-06-20 17:42] LABS: HEMOGLOBIN 15.3 g/dL (12.2-16.2)
[2017-06-20 18:33] LABS: BUN 14 mg/dL (7-18)
[2017-06-20 18:35] LABS: GFR (ESTIMATED) 65 ML/MIN (59-)
[2017-06-20 23:51] LABS: AMPHETAMINES/METAMPHETAMINES NEGATIVE ng/mL (<1000)
== END ==
LOC: LAB 16:53
PROVIDERS: Nurse Practitioner Family
DX: G62.9 Polyneuropathy, unspecified (principal); E78.5 Hyperlipidemia, unspecified; F41.9 Anxiety disorder, unspecified; Z79.899 Other long term (current) drug therapy